=== PATIENT | female | born 1945 | race Caucasian/White ===

== ENCOUNTER 2017-12-26 07:39 | Emergency (ER) | payer OTHER, MEDICARE ==
[~2017-12-26] VITALS: Ht 167.6 cm; Wt 113.4 kg
[~2017-12-26 07:39] MED LIST: BENAZEPRIL20 MG PO; FISH OIL REGUL300 MG PO; GLUMETZA1000 MG PO; GLUMETZA500 MG PO; GOOD SENSE ASPI81 M1 PO; LEVOTHYROXINE0.05 MG PO; MASON NATURAL2000 IU PO; MULTI VITAMINS1 TAB PO; NORVASC 10MG10 MG PO; NORVASC 5MG TAB5 MG PO; PLAVIX 75MG TAB75 MG PO; PRAVASTATIN40 MG PO; PRINIVIL10 MG PO; SIMVASTATIN40 MG PO; XANAX0.25 MG PO; ZOLPIDEM10 MG PO
--- NOTE | 2017-12-26 08:09 | ED THROAT/DENTAL COMPLAINT ---
History of Present Illness General Chief Complaint: Sore Throat, Dental Pain Stated Complaint: SORE THROAT XS 1 DAY 02 SAT 96 Source: patient, family, old records Exam Limitations: no limitations Vital Signs & Intake/Output Vital Signs & Intake/Output Vital Signs Date Time Temp Pulse Resp B/P B/P Pulse O2 O2 Flow FiO2 Mean Ox Delivery Rate 12/26 924 96 Nasal 2.5L Cannula 12/26 09 98.6 93 20 148/82 95 Nasal 2.5L Cannula 12/26 0818 98.1 12/26 0748 98.1 88 18 171/99 97 Room Air Allergies Coded Allergies: zolpidem (Severe, DISORIENTATION AND WEAKNESS, INABILITY TO FOCUS, CONFUSION ) Reconcile Medications Albuterol Sulfate (Proair Hfa) 90 MCG HFA.AER.AD 2 PUF INH Q4-6 PRN PRN bronchospasm Alprazolam (Xanax) 0.25 MG TABLET 1 TAB PO TID PRN ANXIETY (Reported) Amlodipine (Norvasc 10MG) 10 MG TAB 1 TAB PO DAILY HYPERTENSION Amoxicillin 400 MG/5 ML SUSP.RECON 10 ML PO BID sinusitis CHOLECALCIFEROL (VITAMIN D3) (Vitamin D) 2,000 UNIT CAPSULE 1 TAB PO DAILY SUPPLEMENT (Reported) Clopidogrel Bisulfate (Plavix) 75 MG TAB 1 TAB PO DAILY BLOOD THINNER Guaifenesin/Dextromethorphan (Robitussin Cough-Chest Dm Liq) 100 MG-5 MG/5 ML LIQUID 5-10 ML PO Q6P PRN cough Ibuprofen (Child Ibuprofen) 100 MG/5 ML ORAL.SUSP 20-30 ML PO Q6P PRN pain Levothyroxine Sodium 50 MCG TABLET 1 TAB PO DAILY AC THYROID (Reported) Lisinopril (Prinivil) 10 MG TAB 2 TAB PO DAILY HYPERTENSION METFORMIN HCL (Glumetza) 500 MG [id number] 1 TAB PO DAILY HIGH GLUCOSE LEVELS (Reported) Multivitamin (One Daily Multivitamin) 1 EACH TABLET 1 TAB PO DAILY VITAMIN ( Reported) Gabriels-3 Fatty Acids (Fish Oil Regular With Natural Gabriels-3) 300 MG SGL 1 TAB PO DAILY SUPPLEMENT (Reported) Prednisolone Sod Phosphate (Orapred Odt) 15 MG TAB.RAPDIS 1 TAB PO BID pharyngitis place on top of the tongue where it will dissolve, then swallow Simvastatin 40 MG TABLET 1 TAB PO DAILY CHOLESTEROL (Reported) Triage Note: PRESENTS TO ED WITH A SORE THROAT X 24 HRS. HAS BEEN USING COUGH DROPS WITH LITTLE RELIEVE. HAVING DIFFICULTIES SWALLOWING. Triage Nurses Notes Reviewed? yes Onset: Afternoon Duration: hour(s):, constant, continues in ED Timing: recent history Injury Environment: home Severity: moderate, severe No Modifying Factors: none Associated Symptoms: cough LMP (ages 10-50): post menopausal : No Patient currently breastfeeds: No HPI: 1 day prior to admission patient complains of sore throat difficulty swallowing chills congestion nonproductive cough. Prior to admission she tried taking her medications and had difficulty swallowing. She denies fever nausea vomiting diarrhea abdominal pain chest pain shortness of breath headache dysuria rash bleeding. Past History Travel History Traveled to [place] past 21 day No Medical History Any Pertinent Medical History? see below for history Neurological: CVA Cardiovascular: hypertension Endocrine: DM, HYPOTHYRODISM History of MRSA: No History of VRE: No History of CDIFF: No Pneumonia Vaccine: 06/03/13 Surgical History Surgical History: non-contributory Psychosocial History Who do you live with Family Services at Home None What is your primary language Estonian Tobacco Use: Never used Family History Family History, If Any: SISTER Scleroderma FATHER Gout MOTHER FHx: ovarian cancer Relation not specified for: FH: heart attack Hx Contributory? No Review of Systems Review of Systems Constitutional: Reports: see HPI, malaise. EENTM: Reports: see HPI, nasal congestion, throat pain. Respiratory: Reports: see HPI, cough. Cardiovascular: Reports: no symptoms. GI: Reports: no symptoms. Genitourinary: Reports: no symptoms. Musculoskeletal: Reports: no symptoms. Skin: Reports: no symptoms. Neurological/Psychological: Reports: no symptoms. Hematologic/Endocrine: Reports: no symptoms. Immunologic/Allergic: Reports: no symptoms. All Other Systems: Reviewed and Negative Physical Exam Physical Exam General Appearance: well developed/nourished, alert, awake, anxious, mild distress, obese Head: atraumatic, normal appearance Eyes: Bilateral: normal appearance, PERRL, EOMI. Ears: Bilateral: canal normal, Tympanic normal. Nose: normal inspection Mouth/Throat: normal mouth inspection, pharyngeal erythema Neck: normal inspection, supple, full range of motion, trachea midline, lymphadenopathy (R), lymphadenopathy (L), no midline tenderness Cardiovascular/Respiratory: normal breath sounds, normal peripheral pulses, regular rate/rhythm, no respiratory distress Back: normal inspection, normal range of motion, no vertebral tenderness Neurologic/Psych: no motor/sensory deficits, awake, alert, oriented x 3, normal gait, kennel hand II-XII nml as tested, depressed affect Skin: intact, normal color, warm/dry Core Measures ACS in differential dx? No Sepsis Present: No Sepsis Focused Exam Completed? No Progress Differential Diagnosis: briseyda-tonsillar abscess, stomatitis/gingivitis, strep pharyngitis Plan of Care: Orders Procedure Date/time Status THROAT CULTURE W/QUICK STREP 12/26 0804 Active Diagnostic Imaging: Viewed by Me: Radiology Read. Discussed w/RAD: Radiology Read. Radiology Impression: no acute abnormality CXR Impression: no acute abnormality, no infiltrates, normal size heart, normal mediastinum Departure Departure Time of Disposition: 100 Disposition: HOME OR SELF CARE Condition: Stable Clinical Impression Primary Impression: Pharyngitis Qualifiers: Pharyngitis/tonsillitis etiology: unspecified etiology Qualified Code: J02.9 - Acute pharyngitis, unspecified Secondary Impressions: Sinusitis Qualifiers: Sinusitis location: unspecified location Chronicity: acute Referrals: Rosas GOLDSTEIN,Tim Nguyen (PCP/Family) Departure Forms: Customer Survey General Discharge Information Prescriptions: Current Visit Scripts Prednisolone Sod Phosphate (Orapred Odt) 1 TAB PO BID #[address] top of the tongue where it will dissolve, then swallow Ibuprofen (Child Ibuprofen) 20-30 ML PO Q6P PRN pain #240 ML Albuterol Sulfate (Proair Hfa) 2 PUF INH Q4-6 PRN PRN bronchospasm #1 INHAL Amoxicillin 10 ML PO BID #200 ML Guaifenesin/Dextromethorphan (Robitussin Cough-Chest Dm Liq) 5-10 ML PO Q6P PRN cough #240 ML
[2017-12-26 09:22] VITALS: BP 148/82
--- NOTE | 2017-12-26 09:53 | RADIOLOGY REPORT ---
EXAMINATION: CHEST 2 VIEWS CLINICAL INFORMATION: Cough. COMPARISON: 03/21/2014. TECHNIQUE: PA and lateral views of the chest were obtained. FINDINGS: The cardiac silhouette is not enlarged. The mediastinal and hilar contours are unremarkable. There are neither pleural effusions nor pneumothoraces. There are no consolidations. The osseous structures are stable. IMPRESSION: No evidence for acute disease.
--- NOTE | 2017-12-26 09:55 | RADIOLOGY REPORT ---
EXAMINATION: XR SOFT TISSUE NECK CLINICAL INDICATION: Sore throat. Difficulty swallowing. COMPARISON: None TECHNIQUE: 2 views of the soft tissue neck were obtained. FINDINGS: Soft tissue films of the neck demonstrate a normal larynx, pharynx and upper trachea. No soft tissue swelling or opaque foreign body is demonstrated. IMPRESSION: Unremarkable soft tissue neck radiographs.
[2017-12-26] MEDS ORDERED: PROAIR HFA8.5 GM INH (10:08)
[2017-12-26] MEDS ORDERED: AMOXICILLI400 MG/51 PO (10:08)
[2017-12-26] MEDS ORDERED: ORAPRED ODT15 M1 PO (10:08)
[2017-12-26] MEDS ORDERED: CHILD IBUP100 MG/5 M PO (10:08)
[2017-12-26] MEDS ORDERED: ROBITUSSIN COU237 M1 PO (10:09)
== END 2017-12-26 10:14 ==
LOC: ERH 07:39
DX: J02.9 Acute pharyngitis, unspecified (principal); J32.9 Chronic sinusitis, unspecified
CPT/HCPCS: 1263; 70360; 71046